=== PATIENT | female | born 1930 | race Caucasian/White ===

== ENCOUNTER 2017-01-29 15:31 | Inpatient (IN) | payer MEDICARE, OTHER ==
[~2017-01-29] VITALS: Ht 162.6 cm; Wt 65.8 kg
[2017-01-29] MEDS ORDERED: SODIUM CHLORIDE 0.9% 1,000 ML IV ONE (15:34)
[2017-01-29] MEDS ORDERED: SODIUM CHLORIDE FLUSH 10ML SYR IVF ONE (16:00)
[2017-01-29 16:07] LABS: ASPARTATE AMINO TRANSFERASE 26 U/L (15-37); BLOOD UREA NITROGEN 23 mg/dL (7-18)
[2017-01-29 16:35] LABS: DIFF TOTAL CELLS COUNTED 100 CELL DIFF
[2017-01-29 16:38] LABS: ANISOCYTOSIS 1+
[2017-01-29 16:40] LABS: VERIFY COUNTS? YES
[2017-01-29] MEDS ORDERED: CEFTRIAXONE PMX 1GM/50ML 50 ML IV ONE (17:30)
[2017-01-29] MEDS ORDERED: AMLO5TAB2 PO (17:35)
[2017-01-29] MEDS ORDERED: LEVO88TA4 PO (17:36)
[2017-01-29] MEDS ORDERED: FOLI-17 PO (17:36)
[2017-01-29] MEDS ORDERED: FEBU40TA PO (17:36)
[2017-01-29] MEDS ORDERED: PRAV40TA2 PO (17:37)
[2017-01-29] MEDS ORDERED: METH2.5T PO ×2 (17:37→17:38)
[2017-01-29] MEDS ORDERED: SITA100T PO (17:37)
[2017-01-29] MEDS ORDERED: VALS160T3 PO (17:38)
[2017-01-29] MEDS ORDERED: CEFTRIAXONE PMX 1GM/50ML 50 ML ONE (17:40)
[2017-01-29 18:20] VITALS: BP 103/61
[2017-01-29] MEDS ORDERED: ONDANSETRON 2MG/ML, 2ML IVPush PRN (18:30)
[2017-01-29] MEDS ORDERED: ACETAMINOPHEN 325 MG TABLET PO PRN (18:30)
[2017-01-29] MEDS ORDERED: METHOTREXATE 2.5 MG TABLET PO SCH (18:30)
[2017-01-29] MEDS: SODIUM CHLORIDE 0.9% 1,000 ML IV SCH (20:45)
[2017-01-29] MEDS: ERTAPENEM 1 GM in SODIUM CHLORIDE 0.9% 50 ML IV SCH (20:45)
[2017-01-29] MEDS: PRAVASTATIN 40 MG TABLET PO SCH (21:03)
[2017-01-29] MEDS: HEPARIN 5,000 UNITS/ML, 1ML SQ SCH (22:29)
[2017-01-30 03:49] VITALS: BP 100/56
[2017-01-30] MEDS: HEPARIN 5,000 UNITS/ML, 1ML SQ SCH ×2 (05:33→17:43)
[2017-01-30] MEDS: SODIUM CHLORIDE 0.9% 1,000 ML IV SCH ×2 (05:33→17:42)
[2017-01-30 06:01] LABS: BLOOD UREA NITROGEN 18 mg/dL (7-18)
[2017-01-30 06:05] LABS: ASPARTATE AMINO TRANSFERASE 20 U/L (15-37)
[2017-01-30 07:50] VITALS: BP 123/55
[2017-01-30] MEDS ORDERED: LEVOTHYROXINE 88 MCG TABLET PO SCH (09:00)
[2017-01-30] MEDS: FEBUXOSTAT 40 MG TABLET PO SCH (09:06)
[2017-01-30] MEDS: AMLODIPINE 5 MG TABLET PO SCH (09:06)
[2017-01-30] MEDS: SITAGLIPTIN 50MG TABLET PO SCH (09:06)
[2017-01-30] MEDS: FOLIC ACID 1 MG TABLET PO SCH (09:07)
[2017-01-30] MEDS: VALSARTAN 160 MG TABLET PO SCH (09:07)
[2017-01-30 12:26] VITALS: BP 118/50
[2017-01-30 16:05] LABS: TOTAL IRON BINDING CAPACITY 225 mcg/dL (250-450)
[2017-01-30] MEDS: ERTAPENEM 1 GM in SODIUM CHLORIDE 0.9% 50 ML IV SCH (17:42)
[2017-01-30] MEDS: FERROUS SULFATE 325 MG TABLET PO SCH (17:42)
[2017-01-30 19:32] VITALS: BP 114/47
[2017-01-30] MEDS: PRAVASTATIN 40 MG TABLET PO SCH (21:14)
[2017-01-31] MEDS: HEPARIN 5,000 UNITS/ML, 1ML SQ SCH ×2 (02:38→11:36)
[2017-01-31] MEDS: SODIUM CHLORIDE 0.9% 1,000 ML IV SCH ×2 (02:41→14:27)
[2017-01-31 03:28] VITALS: BP 120/57
[2017-01-31] MEDS ORDERED: LEVOTHYROXINE 88 MCG TABLET PO SCH (06:00)
[2017-01-31 06:09] LABS: BLOOD UREA NITROGEN 11 mg/dL (7-18)
[2017-01-31] MEDS ORDERED: POTASSIUM CHLORIDE 20 MEQ TAB.ER.PRT PO ONE (08:00)
[2017-01-31] MEDS: FERROUS SULFATE 325 MG TABLET PO SCH (08:56)
[2017-01-31] MEDS: FOLIC ACID 1 MG TABLET PO SCH (08:57)
[2017-01-31] MEDS: AMLODIPINE 5 MG TABLET PO SCH (08:57)
[2017-01-31] MEDS: FEBUXOSTAT 40 MG TABLET PO SCH (08:57)
[2017-01-31] MEDS: VALSARTAN 160 MG TABLET PO SCH (08:57)
[2017-01-31] MEDS: SITAGLIPTIN 50MG TABLET PO SCH (08:57)
[2017-01-31 09:38] VITALS: BP 136/67
[2017-01-31 14:24] VITALS: BP 106/61
== END 2017-01-31 17:00 | disposition home or self-care (01) | DRG 689 ==
LOC: ED 17:09 → EDIP 17:16 → 3NE 18:45
PROVIDERS: ADMIT Internal Medicine; ATTEND Internal Medicine
PROC: 0T9B70Z Drainage of Bladder with Drainage Device, Via Natural or Artificial Opening (ICD-10-PCS; principal; 2017-01-29)
DX: N39.0 Urinary tract infection, site not specified (principal); N17.0 Acute kidney failure with tubular necrosis; E87.2 Acidosis; E87.1 Hypo-osmolality and hyponatremia; D64.9 Anemia, unspecified; D72.825 Bandemia; E03.9 Hypothyroidism, unspecified; E11.9 Type 2 diabetes mellitus without complications; I10 Essential (primary) hypertension; M06.9 Rheumatoid arthritis, unspecified; M10.9 Gout, unspecified; Z79.84 Long term (current) use of oral hypoglycemic drugs; Z87.440 Personal history of urinary (tract) infections; Z90.710 Acquired absence of both cervix and uterus; Z90.722 Acquired absence of ovaries, bilateral; Z88.6 Allergy status to analgesic agent; Z91.041 Radiographic dye allergy status; Z88.8 Allergy status to other drugs, medicaments and biological substances; Z91.048 Other nonmedicinal substance allergy status; Z80.3 Family history of malignant neoplasm of breast; Z81.8 Family history of other mental and behavioral disorders
CPT/HCPCS: 36415; 51702; 80048; 80053; 81001; 83036; 83540; 83550; 85025; 87040; 87046; 87086; 87324; 87899; 89055; 96360; J0696; J1335; J1644; J7030